=== PATIENT | male | born 1990 | race Caucasian/White ===

== ENCOUNTER 2018-02-14 14:16 | Emergency (ER) | payer SELFPAY ==
--- NOTE | 2018-02-14 14:51 | PHYS DOC ---
Past History Past Medical History: Anxiety, Other Additional Past Medical Histor: ADHD Smoking: Cigarettes, Less than 1pk/day Adult General Chief Complaint Chief Complaint: HAND PROBLEM HPI HPI 27-year-old right-handed male patient states he had injury to right hand 3 days ago and since then has had pain in his hand that getting worse with movement of his fingers. Patient rated his pain 5/10 and denies focal neuro deficit. Patient states she applied ice and took [id number] pain medication. Review of Systems Review of Systems Constitutional: Denies fever or chills [] Eyes: Denies change in visual acuity, redness, or eye pain [] HENT: Denies nasal congestion or sore throat [] Respiratory: Denies cough or shortness of breath [] Cardiovascular: No additional information not addressed in HPI [] GI: Denies abdominal pain, nausea, vomiting, bloody stools or diarrhea [] : Denies dysuria or hematuria [] Musculoskeletal: Denies back pain, reports extremity pain Integument: Denies rash or skin lesions [] Neurologic: Denies headache, focal weakness or sensory changes [] Endocrine: Denies polyuria or polydipsia [] All other systems were reviewed and found to be within normal limits, except as documented in this note. Physical Exam Physical Exam Constitutional: Well developed, well nourished, no acute distress, non-toxic appearance. [] HENT: Normocephalic, atraumatic [] Eyes: PERRLA, EOMI, conjunctiva normal, no discharge. [] Neck: Normal range of motion, no tenderness, supple, no stridor. [] Cardiovascular:Heart rate regular rhythm, no murmur [] Lungs & Thorax: Bilateral breath sounds clear to auscultation [] Extremities: Right hand with contusion and tenderness of the fifth metacarpal area without neurovascular deficit, no cyanosis, no clubbing, ROM intact[] Neurologic: Alert and oriented X 3, normal motor function, normal sensory function, no focal deficits noted. [] Psychologic: Affect normal, judgement normal, mood normal. [] EKG EKG [] Radiology/Procedures Radiology/Procedures [][address] [address] IMAGING REPORT Signed PATIENT: PEÑA HUFFMAN ACCOUNT: [id number] : 1990 LOCATION: ER AGE: 27 SEX: M EXAM STATUS: PRE ER ORD. PHYSICIAN: OJNH NELSON MD REASON: injury PROCEDURE: HAND RIGHT 3V Examination: 3 views of the right hand HISTORY: History of jammed index finger and third finger into the pavement COMPARISON: None available FINDINGS: The alignment of the metacarpophalangeal joints, interphalangeal grossly appears unremarkable. There is no acute fracture or dislocation identified. Impression: No acute osseous findings. Electronically signed by: Josué Parsons MD (02/14/2018 2:53 PM) [facility] DICTATED AND SIGNED BY: JOSUÉ PARSONS MD DATE: 02/14/18 1451 CC: BRISEYDA HU; JONH NELSON MD ~ Course & Med Decision Making Course & Med Decision Making Pertinent Imaging studies reviewed. (See chart for details) X-ray did not show fracture, Alexander wrap was applied and patient instructed to apply ice and take yquf-khj-kfeldog ibuprofen. [] Dragon Disclaimer Dragon Disclaimer This electronic medical record was generated, in whole or in part, using a voice recognition dictation system. Departure Departure: Impression: Primary Impression: Contusion of hand, right Disposition: 01 HOME, SELF-CARE (at 1512) Condition: STABLE Referrals: BRISEYDA HU (PCP) Patient Instructions: Hand Contusion Additional Instructions: Apply ice on the affected area Follow-up with your primary care physician in 3-5 days Return to ER if not getting better Qnuk-qes-ofbsjth ibuprofen as needed for pain JONH NELSON MD Feb 14, 2018 14:51
--- NOTE | 2018-02-14 14:57 | RAD ---
Examination: 3 views of the right hand HISTORY: History of jammed index finger and third finger into the pavement COMPARISON: None available FINDINGS: The alignment of the metacarpophalangeal joints, interphalangeal grossly appears unremarkable. There is no acute fracture or dislocation identified. Impression: No acute osseous findings. Electronically signed by: Josué Parsons MD (02/14/2018 2:53 PM) [facility]
[2018-02-14 15:20] VITALS: BP 132/54
== END 2018-02-14 15:20 | disposition home or self-care (01) ==
LOC: ER 14:16
DX: S60.221A Contusion of right hand, initial encounter (principal); F41.9 Anxiety disorder, unspecified; F90.9 Attention-deficit hyperactivity disorder, unspecified type; F17.210 Nicotine dependence, cigarettes, uncomplicated; X58.XXXA Exposure to other specified factors, initial encounter; Y93.89 Activity, other specified; Y99.8 Other external cause status; Y92.89 Other specified places as the place of occurrence of the external cause
CPT/HCPCS: 73130; 99284

== ENCOUNTER 2018-05-10 18:12 | Emergency (ER) | payer SELFPAY ==
[~2018-05-10] VITALS: Ht 177.8 cm; Wt 74.8 kg
[2018-05-10 19:05] VITALS: BP 129/66
--- NOTE | 2018-05-10 19:21 | PHYS DOC ---
Past History Past Medical History: Anxiety, Other Additional Past Medical Histor: ADHD Past Surgical History: No Surgical History Smoking: Cigarettes, Less than 1pk/day Alcohol Use: None Drug Use: None Adult General Chief Complaint Chief Complaint: LACERATION/AVULSION HPI HPI 27-year-old male presents with left thumb laceration. 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 The patient had some bleeding and pain. The bleeding is controlled at this time. He is concerning need stitches. The patient denies any other injuries. His tetanus is within 5 years. Review of Systems Review of Systems Constitutional: Denies fever or chills [] Eyes: Denies change in visual acuity, redness, or eye pain [] HENT: Denies nasal congestion or sore throat [] Respiratory: Denies cough or shortness of breath [] Cardiovascular: No additional information not addressed in HPI [] GI: Denies abdominal pain, nausea, vomiting, bloody stools or diarrhea [] : Denies dysuria or hematuria [] Musculoskeletal: Denies back pain or joint pain [] Integument: Laceration[] Neurologic: Denies headache, focal weakness or sensory changes [] Endocrine: Denies polyuria or polydipsia [] All other systems were reviewed and found to be within normal limits, except as documented in this note. Allergies Allergies Allergies Coded Allergies Type Severity Reaction Last Updated Verified No Known Drug Allergies 02/14/18 No Physical Exam Physical Exam Constitutional: Well developed, well nourished, no acute distress, non-toxic appearance. [] HENT: Normocephalic, atraumatic, bilateral external ears normal, oropharynx moist, no oral exudates, nose normal. [] Eyes: PERRLA, EOMI, conjunctiva normal, no discharge. [] Neck: Normal range of motion, no tenderness, supple, no stridor. [] Cardiovascular:Heart rate regular rhythm, no murmur [] Lungs & Thorax: Bilateral breath sounds clear to auscultation [] Abdomen: Bowel sounds normal, soft, no tenderness, no masses, no pulsatile masses. [] Skin: Has similar laceration of the posterior left thumb. No foreign body seen[ ] Back: No tenderness, no CVA tenderness. [] Extremities: No tenderness, no cyanosis, no clubbing, ROM intact, no edema. [] Neurologic: Alert and oriented X 3, normal motor function, normal sensory function, no focal deficits noted. [] Psychologic: Affect normal, judgement normal, mood normal. [] Current Patient Data Vital Signs Vital Signs Date Time Temp Pulse Resp B/P (MAP) Pulse Ox O2 Delivery O2 Flow Rate FiO2 05/10/18 19:05 56 16 129/66 (87) 98 Room Air 05/10/18 18:45 98.4 EKG EKG [] Radiology/Procedures Radiology/Procedures [] Course & Med Decision Making Course & Med Decision Making Pertinent Labs and Imaging studies reviewed. (See chart for details) The patient has a 1/2 cm laceration of the left posterior thumb. I was able to repair it with skin glue. See note for further details. Patient tolerated the procedure well. I will place him in a splint for 3 days to help keep him from bending it so the skin can seal and for comfort at work. He is stable for discharge at this time. Laceration repair: I received verbal consent from the patient for a 1/2 cm linear laceration repair with skin glue of the left thumb. The wound was cleansed and irrigated with a water Hibiclens solution. No foreign material was found. Anesthesia was not necessary. I was able to place 2 layers of Dermabond over the laceration. Good skin approximation was achieved. Hemostasis was achieved. A clean nonadherent dressing was placed over the wound and then the patient was placed in a splint. There were no complications. [] Dragon Disclaimer Dragon Disclaimer This electronic medical record was generated, in whole or in part, using a voice recognition dictation system. Departure Departure: Referrals: BRISEYDA HU (PCP) MARVEL HOLLINGSWORTH DO May 10, 2018 19:21
== END 2018-05-10 19:25 | disposition home or self-care (01) ==
LOC: ER 18:12
DX: S61.012A Laceration without foreign body of left thumb without damage to nail, initial encounter (principal); F17.210 Nicotine dependence, cigarettes, uncomplicated; W26.8XXA Contact with other sharp object(s), not elsewhere classified, initial encounter; Y93.89 Activity, other specified; Y92.89 Other specified places as the place of occurrence of the external cause; Y99.8 Other external cause status
CPT/HCPCS: 12001; 99283

== ENCOUNTER 2019-11-20 10:39 | Emergency (ER) | payer SELFPAY ==
[~2019-11-20] VITALS: Ht 177.8 cm; Wt 75.3 kg
[2019-11-20 10:45] VITALS: BP 125/66
[2019-11-20] MEDS ORDERED: CEPH-264 PO (10:59)
[2019-11-20] MEDS ORDERED: SULF1TAB24 PO (10:59)
--- NOTE | 2019-11-20 10:59 | PHYS DOC ---
Past History Past Medical History: Anxiety, Other Additional Past Medical Histor: ADHD Past Surgical History: No Surgical History Smoking: Cigarettes, Less than 1pk/day Alcohol Use: None Drug Use: None General Adult EDM: Chief Complaint: ABSCESS HPI: HPI: Patient is a 28-year-old male presented to ER today for evaluation of painful lesion on his left armpit area since 2 days ago. Patient said he tried to squeeze it and noticed some pus came out yesterday. Patient woke up this morning, noted lesion became more swollen so he came here for evaluation. Patient denies any fever. Patient is not allergic to anything. Patient denies any history of diabetes. Review of Systems: Review of Systems: Constitutional: Denies fever or chills Eyes: Denies change in visual acuity HENT: Denies nasal congestion or sore throat Respiratory: Denies cough or shortness of breath Cardiovascular: Denies chest pain or edema GI: Denies abdominal pain, nausea, vomiting, bloody stools or diarrhea : Denies dysuria Musculoskeletal: Denies back pain or joint pain Integument: Denies rash , positive for painful lesion on left armpit area Neurologic: Denies headache, focal weakness or sensory changes Endocrine: Denies polyuria or polydipsia Lymphatic: Denies swollen glands Psychiatric: Denies depression or anxiety Heart Score: Risk Factors: Risk Factors: DM, Current or recent (<one month) smoker, HTN, HLP, family history of CAD, obesity. Risk Scores: Score 0 - 3: 2.5% MACE over next 6 weeks - Discharge Home Score 4 - 6: 20.3% MACE over next 6 weeks - Admit for Clinical Observation Score 7 - 10: 72.7% MACE over next 6 weeks - Early Invasive Strategies Allergies: Allergies: Allergies Coded Allergies Type Severity Reaction Last Updated Verified No Known Drug Allergies 02/14/18 No Physical Exam: PE: Constitutional: Well developed, well nourished, no acute distress, non-toxic appearance. [] HENT: Normocephalic, atraumatic, bilateral external ears normal, oropharynx moist, no oral exudates, nose normal. [] Eyes: PERRLA, EOMI, conjunctiva normal, no discharge. [] Neck: Normal range of motion, no tenderness, supple, no stridor. [] Cardiovascular:Heart rate regular rhythm, no murmur [] Lungs & Thorax: Bilateral breath sounds clear to auscultation [] Abdomen: Bowel sounds normal, soft, no tenderness, no masses, no pulsatile helen s. [] Skin: Warm, dry, no erythema, no rash. There is a quarter size erythema area on left armpit area, not much induration. Back: No tenderness, no CVA tenderness. [] Extremities: No tenderness, no cyanosis, no clubbing, ROM intact, no edema. [] Neurologic: Alert and oriented X 3, normal motor function, normal sensory function, no focal deficits noted. [] Psychologic: Affect normal, judgement normal, mood normal. [] EKG: EKG: [] Radiology/Procedures: Radiology/Procedures: [] Course & Med Decision Making: Course & Med Decision Making Pertinent Labs and Imaging studies reviewed. (See chart for details) Patient is a 28-year-old male with early developing abscess with cellulitis on his left armpit area, there is no indication for I&D at this time. Patient will be put on Keflex and Bactrim DS for 10 days. Dragon Disclaimer: Dragon Disclaimer: This electronic medical record was generated, in whole or in part, using a voice recognition dictation system. Departure Departure: Impression: Primary Impression: Abscess of axilla, left Disposition: 01 HOME, SELF-CARE Condition: STABLE Referrals: BRISEYDA HU (PCP) FOLLOW UP WITH YOUR DOCTOR IN 2 DAYS FOR REEVALUATION. Patient Instructions: Abscess Additional Instructions: TAKE 25 MG BENADRYL EVERY 4 HOURS NEEDED FOR SWELLING. Scripts Cephalexin (KEFLEX) 500 Mg Capsule 1 CAP PO TID for ABSCESS for 10 Days, #30 CAP 0 Refills Prov: ALICIA MCKOY DO 11/20/19 Sulfamethoxazole/Trimethoprim (BACTRIM DS TABLET) 1 Each Tablet 1 TAB PO BID for ABSCESS for 10 Days, #20 TAB 0 Refills Prov: ALICIA MCKOY DO 11/20/19 ALICIA MCKOY DO Nov 20, 2019 10:59
== END 2019-11-20 11:00 | disposition home or self-care (01) ==
LOC: ER 10:39
DX: L02.412 Cutaneous abscess of left axilla (principal); F90.9 Attention-deficit hyperactivity disorder, unspecified type; F17.210 Nicotine dependence, cigarettes, uncomplicated
CPT/HCPCS: 99283

== ENCOUNTER 2020-05-09 08:21 | Emergency (ER) | payer BC ==
[~2020-05-09] VITALS: Ht 177.8 cm; Wt 75.3 kg
[~2020-05-09 08:21] MED LIST: CEPH-264 PO; SULF1TAB24 PO
[2020-05-09] MEDS ORDERED: PRED20TA PO (09:07)
--- NOTE | 2020-05-09 09:08 | PHYS DOC ---
Past History Past Medical History: Anxiety, Other Additional Past Medical Histor: ADHD, Chronic Left Knee pain, Seasonal allergies Past Surgical History: No Surgical History Smoking: Cigarettes, Less than 1pk/day Alcohol Use: None Drug Use: None General Adult EDM: Chief Complaint: ALLERGIC REACTION HPI: HPI: Patient is a 29 year old male who presents with post exposure to poison mary on his right dorsal hand last night. He states that he washed the area with soap and water and took two tabs of benadryl last night. It has now spread up his right forearm and left dorsal hand. Patient rates severity at 4/10 with intermittent pruritus. Patient states right hand had minimal swelling prior to benadryl, and denies any additional swelling. He has had a similar event last year and treated with a shot at [employer]. He is not sure what he was treated with. He has not taken any additional medication today. Review of Systems: Review of Systems: Constitutional: Denies fever or chills Eyes: Denies redness or eye pain HENT: Denies nasal congestion or sore throat Respiratory: Denies cough or shortness of breath Cardiovascular: Denies chest pain or palpitations GI: Denies abdominal pain, nausea, or vomiting : Denies dysuria or hematuria Musculoskeletal: Denies back pain or joint pain Integument: Admits rashes. Denies skin lesions Neurologic: Denies headache, focal weakness or sensory changes Complete systems were reviewed and found to be within normal limits, except as documented in this note. Family History: Family History: Family history noncontributory Current Medications: Current Meds: Adderall [place] Allergies: Allergies: Allergies Coded Allergies Type Severity Reaction Last Updated Verified No Known Drug Allergies 02/14/18 No Physical Exam: PE: Constitutional: Well developed, well nourished, no acute distress, non-toxic appearance HENT: Normocephalic, atraumatic Eyes: PERRL, EOMI, conjunctiva normal, no discharge Neck: Normal range of motion, no tenderness, supple Lungs & Thorax: No respiratory distress, equal chest rise and fall Abdomen: Soft, no tenderness Skin: Warm, dry, erythematous rash on R hand and forearm and L hand Back: No tenderness, no CVA tenderness Extremities: No tenderness, ROM intact, no edema Neurologic: Alert and oriented X 3, normal motor function, normal sensory function, no focal deficits noted Psychologic: Affect normal, judgment normal Course & Med Decision Making: Course & Med Decision Making Patient is a 29yo Male who presented with poison mary exposure. He was seen and examined. He was given oral dexamethasone and rx for prednisone. Patient was afebrile, denied fever and headaches, and not in acute distress. Patient stable for discharge with outpatient follow-up with PCP. Discussed findings and plan with patient, who acknowledges understanding and agreement. Lisa Disclaimer: Lisa Disclaimer: This electronic medical record was generated, in whole or in part, using a voice recognition dictation system. Departure Departure: Impression: Primary Impression: Contact dermatitis due to poison mary Disposition: 01 DC HOME SELF CARE/HOMELESS Condition: STABLE Referrals: BRISEYDA HU (PCP) Patient Instructions: Poison Mary, Enwr-vd-Wdfg Scripts Prednisone (PREDNISONE) 20 Mg Tablet 2 TAB PO DAILY for Rash, #8 TAB Start this prescripiton tomorrow, 05/10/2020 Prov: PEÑA AVILA DO 05/09/20 PEÑA AVILA DO May 09, 2020 09:08
[2020-05-09] MEDS ORDERED: DEXAMETHASONE 4 MG TABLET PO ONE (09:30)
== END 2020-05-09 09:33 | disposition home or self-care (01) ==
LOC: ER 08:21
DX: L23.7 Allergic contact dermatitis due to plants, except food (principal); G89.29 Other chronic pain; F17.210 Nicotine dependence, cigarettes, uncomplicated
CPT/HCPCS: 99283

== ENCOUNTER 2021-01-09 17:37 | Emergency (ER) | payer BC, OTHER ==
[~2021-01-09] VITALS: Ht 177.8 cm; Wt 77.2 kg
[~2021-01-09 17:37] MED LIST changes: +PRED20TA PO
--- NOTE | 2021-01-09 18:53 | PHYS DOC ---
Past History Past Medical History: Other Additional Past Medical Histor: ADHD Past Surgical History: No Surgical History Smoking: Cigarettes, Less than 1pk/day Alcohol Use: Occasionally Drug Use: None Adult General Chief Complaint Chief Complaint: MULTIPLE TRAUMA/FALL HPI HPI Patient is an otherwise healthy 30-year-old male, who presents to the emergency department after falling off a ladder while at work. States he was approximately 15 feet up the ladder, on grass, fell down the ladder and hit the ladder a couple of times on his left side before hitting the ground on his left side. Denies any head injury, headache, changes in vision, neck pain, chest pain, shortness of breath, abdominal pain, nausea, vomiting. Denies any numbness/weakness/tingling. Denies any trouble sitting, standing or walking. States he has some pain in his left hip and left knee, 5 out of 10, dull and achy in nature. Denies any other injuries or complaints. Denies any need for pain medications at this time. 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 Review of Systems Review of Systems Review of systems otherwise unremarkable except noted in HPI Allergies Allergies Allergies Coded Allergies Type Severity Reaction Last Updated Verified No Known Drug Allergies 02/14/18 No Physical Exam Physical Exam Constitutional: Well developed, well nourished, no acute distress, non-toxic appearance. [] HENT: Normocephalic, atraumatic, bilateral external ears normal, oropharynx moist, no oral exudates, nose normal. [] Eyes:conjunctiva normal, no discharge. [] Neck: Normal range of motion, no tenderness, supple, no stridor. [] Cardiovascular:Heart rate regular rhythm, no murmur [] Lungs & Thorax: Bilateral breath sounds clear to auscultation [] Abdomen: soft, no tenderness, no masses, no pulsatile masses. [] Skin: Warm, dry, no erythema, no rash. [] Back: Mild lumbar tenderness around L5 with no obvious bruising, deformities or step-offs Extremities: No tenderness, no cyanosis, no clubbing, ROM intact, no edema. [] Neurologic: Alert and oriented X 3, normal motor function, normal sensory function, able to sit, stand and walk without issue no focal deficits noted. [] Psychologic: Affect normal, judgement normal, mood normal. [] Current Patient Data Vital Signs Vital Signs Date Time Temp Pulse Resp B/P (MAP) Pulse Ox O2 Delivery O2 Flow Rate FiO2 01/09/21 18:19 98.1 69 18 131/70 (90) 99 Room Air EKG EKG [] Radiology/Procedures Radiology/Procedures [] Heart Score C/O Chest Pain: No Risk Factors: Risk Factors: DM, Current or recent (<one month) smoker, HTN, HLP, family history of CAD, obesity. Risk Scores: Risk Factors: DM, Current or recent (<one month) smoker, HTN, HLP, family history of CAD, obesity. Course & Med Decision Making Course & Med Decision Making Patient is a 30-year-old male who presents after falling off a ladder with left hip, low back and knee pain Vital signs not concerning. Physical exam noted above. Patient declined need for pain medications at this time. Imaging with no acute osseous abnormalities. Patient able to sit, stand or walk without issue. Discussed all findings with patient. Advised on pain medication at home. Advised to follow-up with primary care physician in the morning to update. Gave return precautions to the ED. Patient grateful, verbalized understanding and agreed with plan of discharge. [] Dragon Disclaimer Dragon Disclaimer This electronic medical record was generated, in whole or in part, using a voice recognition dictation system. Departure Departure: Impression: Primary Impression: Fall Disposition: 01 HOME / SELF CARE / HOMELESS Condition: GOOD Referrals: BRISEYDA HU (PCP) Patient Instructions: Fall Prevention and Home Safety, RICE - Routine Care for Injuries Additional Instructions: Thank you for coming into the emergency department today and allowing us to take care of you. You are given information on fall prevention and safety. As discussed, your imaging did not show any broken bones. You can use Tylenol, ibuprofen and ice as needed and tolerated. Please follow-up with your primary care physician to discuss your ED visit. Please come back to the emergency department with new or concerning symptoms as discussed. GURWINDER PEARCE MD Jan 09, 2021 18:53
--- NOTE | 2021-01-09 18:54 | RAD ---
Exam: Pelvis with left hip 2 views INDICATION: Fall off ladder TECHNIQUE: Frontal view of pelvis with frontal and frog-leg lateral views the left hip Comparisons: None FINDINGS: Bone mineralization is normal. No acute or healed fractures. Soft tissues are unremarkable. Joint spa janel are well-maintained. IMPRESSION: No acute osseous abnormality. Electronically signed by: Tushra De La Rosa MD (01/09/2021 6:52 PM) [facility]
--- NOTE | 2021-01-09 18:54 | RAD ---
Examination: CT lumbar spine without contrast History: Fall, pain Technique: Axial helical images of the lumbar spine were obtained without contrast. Coronal and sagit zoie reconstruction was performed. Exposure: One or more of the following individualized dose reduction techniques were utilized for thi s examination: 1. Automated exposure control 2. Adjustment of the mA and/or kV according to patient size 3. Use of iterative reconstruction technique Findings: The vertebral bodies are aligned. There is no loss of vertebral body stature. Evaluation of the central canal is limited without contrast. Impression: 1. No acute osseous findings. Electronically signed by: Josué Parsons MD (01/09/2021 6:51 PM) [id number]
--- NOTE | 2021-01-09 18:55 | RAD ---
Exam: Left knee 4 views INDICATION: Fall off ladder, pain TECHNIQUE: Frontal, lateral, oblique and sunrise views of the left knee Comparisons: None FINDINGS: Bone mineralization is normal. No acute or healed fractures. Soft tissues are unremarkable. Joint spa janel are well-maintained. IMPRESSION: No acute osseous abnormality. Electronically signed by: Tushar De La Rosa MD (01/09/2021 6:53 PM) [facility]
--- NOTE | 2021-01-09 18:56 | RAD ---
Exam: Lumbar spine 3 views INDICATION: Fall off ladder TECHNIQUE: Frontal and lateral views lumbar spine with spot magnification view of the lumbosacral luis ction. Comparisons: None FINDINGS: Vertebral body heights and alignment are well-maintained. No significant spondylotic change in the lumbar spine. Visualized paraspinal soft tissues are unremarkable. IMPRESSION: Unremarkable lumbar spine radiographs. Electronically signed by: Tushar De La Rosa MD (01/09/2021 6:54 PM) [facility]
[2021-01-09 19:40] VITALS: BP 128/72
== END 2021-01-09 19:50 | disposition home or self-care (01) ==
LOC: ER 17:37
DX: M25.552 Pain in left hip (principal); M25.562 Pain in left knee; M54.5 Low back pain; F90.9 Attention-deficit hyperactivity disorder, unspecified type; F17.210 Nicotine dependence, cigarettes, uncomplicated; W11.XXXA Fall on and from ladder, initial encounter; Y93.89 Activity, other specified; Y92.89 Other specified places as the place of occurrence of the external cause; Y99.0 Civilian activity done for income or pay
CPT/HCPCS: 72100; 72131; 73502; 73564; 99284